=== PATIENT | male | born 1975 | race Caucasian/White ===

== ENCOUNTER 2016-12-31 13:00 | Emergency (ER) | payer OTHER ==
[2016-12-31 13:07] VITALS: PULSE 76; TEMP 99.9
[2016-12-31] MEDS ORDERED: IBUPROFEN 400 MG TAB PO STA (13:16)
--- NOTE | 2016-12-31 13:26 | ED ---
General Adult HPI - General Chief complaint: Dental/Oral Stated complaint: Dental Pain/Swelling Time Seen by Provider: 12/31/16 13:11 Source: patient, RN notes reviewed Mode of arrival: ambulatory Limitations: no limitations - History of Present Illness Initial comments: This is a 41-year-old male with dental pain on the right side that has been hurting for about one week. Patient states he has bad teeth and wears an upper plate. Patient denies any fever/chills, vomiting or diarrhea. Patient admits to some mild nausea. Patient states the pain is waking him up in the middle of the night. Patient states the pain radiates to the right ear. Patient denies any sore throat. Patient states he has noticed some swelling to the right side of his face as well. Patient does have a dentist but was unable to get into them yet. Patient denies any recent shortness breath, chest pain, abdominal pain, back pain, numbness, tingling, hematuria, headache, or visual changes, or any other complaints. - Related Data Home Medications Medication Instructions Recorded Confirmed buPROPion XL [Wellbutrin Xl] 450 mg PO DAILY 12/31/16 12/31/16 Previous Rx's Medication Instructions Recorded Amoxicillin 500 mg PO Q12HR 7 Days 12/31/16 HYDROcodone/APAP 5-325MG [Victor 1 tab PO Q6HR #12 tab 12/31/16 5-325] amLODIPine [Norvasc] 5 mg PO HS 12 Days 12/31/16 Allergies Allergy/AdvReac Type Severity Reaction Status Date / Time No Known Allergies Allergy Verified 12/31/16 13:07 Review of Systems ROS Statement: Those systems with pertinent positive or pertinent negative responses have been documented in the HPI. ROS Other: All systems not noted in ROS Statement are negative. Past Medical History Additional Past Medical History / Comment(s): kidney stone-- 9 years ago History of Any Multi-Drug Resistant Organisms: None Reported Past Surgical History: Cholecystectomy, Orthopedic Surgery Additional Past Surgical History / Comment(s): hemmorrhoidectomy/ elbow Past Psychological History: Depression Smoking Status: Former smoker Past Alcohol Use History: Rare Past Drug Use History: None Reported General Exam - General Exam Comments Initial Comments: General: The patient is awake and alert, in no distress, and does not appear acutely ill. Eye: Pupils are equal, round and reactive to light, extra-ocular movements are intact. No nystagmus. There is normal conjunctiva bilaterally. No signs of icterus. Ears: TMs pink and pearly with intact cone of light bilaterally. Normal external ear canals Nose: Nasal turbinates pink and moist Mouth and throat: There is a fractured tooth #31 with no surrounding erythema or purulent drainage. No sign of abscess. Patient presented upper plate. There is some mild right-sided facial swelling. There are moist mucous membranes and no oral lesions. Neck: The neck is supple, there is no tenderness or JVD. Cardiovascular: There is a regular rate and rhythm. No murmur, rub or gallop is appreciated. Respiratory: Lungs are clear to auscultation, respirations are non-labored, breath sounds are equal. No wheezes, stridor, rales, or rhonchi. Musculoskeletal: Normal ROM, no tenderness. Strength 5/5. Sensation intact. Radial pulses equal bilaterally 2+. Neurological: A&O x 3. CN II-XII intact, There are no obvious motor or sensory deficits. Coordination appears grossly intact. Speech is normal. Skin: Skin is warm and dry and no rashes or lesions are noted. Psychiatric: Cooperative, appropriate mood & affect, normal judgment. Limitations: no limitations Course Vital Signs 12/31/16 12/31/16 13:04 13:20 Temperature 99.9 F H Pulse Rate 76 76 Respiratory 20 18 Rate Blood Pressure 147/103 164/100 O2 Sat by Pulse 98 96 Oximetry Medical Decision Making - Medical Decision Making This is a 41-year-old male who presents with right-sided dental pain 1 week. On physical exam There is a fractured tooth #31 with no surrounding erythema or purulent drainage. No sign of abscess. Patient with an upper plate. There is some mild right-sided facial swelling. There are moist mucous membranes and no oral lesions. Patient has a mild fever at the EC today. Patient was given Motrin for this. Patient's elevated blood pressure is noted and patient states he has a history elevated blood pressure and is currently seeking a primary care physician to manage this. I discussed that this could be partly due to pain but that I will give the patient a prescription for Norvasc to take at night. Patient is asymptomatic today. Discussed close follow-up with the primary care physician for blood pressure. Discussed side effects. I discussed the patient was put on a course of amoxicillin and given a prescription for Victor. Discussed sedation effects. Discussed that patient needs to follow-up with the dentist. Discussed return parameters. [facility] dental plan: [address] [place] [address], . [employer]: Have to pay $50 for x-rays and the rest is covered. . Discussed that patient should follow up with PCP in one to 2 days or return to the [facility] for any worsening symptoms or for any further concerns. Patient and were receptive to this plan and patient will be discharged home. Disposition Clinical Impression: Pain, dental, High blood pressure Disposition: HOME SELF-CARE Condition: Good Instructions: Toothache (ED) Additional Instructions: Please use antibiotics as prescribed. Please use pain medication as prescribed. Please be aware that Victor can make you drowsy please avoid alcohol and driving while using this medication. May use [id number] Tylenol or Motrin for pain. Use warm compresses to the area for pain. Please follow-up with dentist as soon as possible. [facility] dental plan: [address] [place] [address], . [employer]: Have to pay $50 for x-rays and the rest is covered. [phone]. Please use Norvasc as prescribed. Please follow up with PCP tomorrow or return to the EC for any worsening symptoms or for any further concerns. Prescriptions: Amoxicillin 500 mg PO Q12HR 7 Days HYDROcodone/APAP 5-325MG [Victor 5-325] 1 tab PO Q6HR #12 tab amLODIPine [Norvasc] 5 mg PO HS 12 Days Referrals: Jeff Booker III, MD [STAFF PHYSICIAN] - 1-2 days Haresh Bailey MD [STAFF PHYSICIAN] - 1-2 days None,Stated [Primary Care Provider] - 1-2 days Britta Davison MD [STAFF PHYSICIAN] - 1-2 days Time of Disposition: 13:24
[2016-12-31 13:33] VITALS: BP 164/100; RESP 18
== END 2016-12-31 13:40 | disposition home or self-care (01) ==
LOC: EC 13:00
DX: S02.5XXA Fracture of tooth (traumatic), initial encounter for closed fracture (principal); I10 Essential (primary) hypertension; Z79.899 Other long term (current) drug therapy; F32.9 Major depressive disorder, single episode, unspecified; Z87.891 Personal history of nicotine dependence
CPT/HCPCS: 99282

== ENCOUNTER → 2017-03-07 | Outpatient (CLI) | payer OTHER ==
--- NOTE | 2017-03-07 08:26 | US ---
EXAMINATION TYPE: US abdomen comp/pelvis limited DATE OF EXAM: 03/07/2017 7:23 AM COMPARISON: NONE CLINICAL HISTORY: R74.8 Abnormal levels of other serum enzymes,I10. EXAM MEASUREMENTS: Liver Length: 14.9 cm Gallbladder Wall: Surgically absent cm CBD: 0.5 cm Spleen: 14.9 cm Right Kidney: 11.2 x 5.3 x 5.8 cm Left Kidney: 12.6 x 6.5 x 7.0 cm Pancreas: Obscured by bowel gas Liver: difficult to penetrate Gallbladder: Surgically absent CBD: wnl Spleen: measures 14.9 cm, mildly enlarged Right Kidney: No hydronephrosis or masses seen Left Kidney: No hydronephrosis or masses seen Upper IVC: wnl Abd Aorta: wnl Bladder: wnl *prominent prostate noted for 41 yr old. IMPRESSION: 1. Diffuse hepatocellular disease versus hepatic steatosis. Correlate with liver function testing. 2. Mild splenomegaly. 3 mild prominence of the prostate gland suggested.
== END | disposition home or self-care (01) ==
LOC: RADUSWWP 06:55
PROVIDERS: ATTEND Family Medicine
DX: R16.1 Splenomegaly, not elsewhere classified (principal); I10 Essential (primary) hypertension; R74.8 Abnormal levels of other serum enzymes
CPT/HCPCS: 76700; 76857

== ENCOUNTER 2017-05-25 16:26 | Emergency (ER) | payer OTHER ==
[2017-05-25] MEDS ORDERED: KETOROLAC 30 MG/ML 1 ML VIAL IVP STA (17:01)
[2017-05-25] MEDS ORDERED: ONDANSETRON 4 MG/2 ML VIAL IVP STA (17:01)
[2017-05-25] MEDS ORDERED: HYDROmorphone 1 MG/ML 1 ML SYRINGE IVP STA (17:01)
[2017-05-25] MEDS ORDERED: SODIUM CHLORIDE 0.9% 1,000 ML IV STA (17:01)
--- NOTE | 2017-05-25 17:08 | ED ---
General Adult HPI - General Chief complaint: Abdominal Pain Stated complaint: POSS KIDNEY STONE Time Seen by Provider: 05/25/17 16:58 Source: patient Mode of arrival: ambulatory Limitations: no limitations - History of Present Illness Initial comments: Patient's a 41-year-old male with significant past mental history for kidney stones, who presents emergency room today with a chief complaint of right-sided flank pain that started proxy 6 AM this morning. Patient does admit to sharp and pressure type pain locally to the right flank area. Admits to some pressure with urination earlier today. Admits to nausea vomiting. Denies any other complaints or associated symptoms at this time. Patient denies any recent fever, chills, shortness of breath, chest pain, back pain, abdominal pain, nausea or vomiting, numbness or tingling, dysuria or hematuria, constipation or diarrhea, headaches or visual changes, or any other complaints. - Related Data Home Medications Medication Instructions Recorded Confirmed Multivitamins, Thera [Multivitamin 1 tab PO DAILY 05/25/17 05/25/17 (formulary)] Ondansetron Odt [Zofran Odt] 4 mg PO Q12HR PRN 05/25/17 05/25/17 amLODIPine [Norvasc] 10 mg PO DAILY 05/25/17 05/25/17 buPROPion XL [Wellbutrin Xl] 450 mg PO DAILY 05/25/17 05/25/17 Previous Rx's Medication Instructions Recorded Hydrocodone/Acetaminophen [Howell 1 each PO Q6HR PRN #20 tab 05/25/17 5-325] Ibuprofen [Motrin] 800 mg PO Q8HR #30 tab 05/25/17 Ondansetron Odt [Zofran ODT] 4 mg PO Q8HR PRN #20 tab 05/25/17 Tamsulosin [Flomax] 0.4 mg PO DAILY #10 cap 05/25/17 Allergies Allergy/AdvReac Type Severity Reaction Status Date / Time No Known Allergies Allergy Verified 05/25/17 17:04 Review of Systems ROS Statement: Those systems with pertinent positive or pertinent negative responses have been documented in the HPI. ROS Other: All systems not noted in ROS Statement are negative. Past Medical History Additional Past Medical History / Comment(s): kidney stone-- 9 years ago History of Any Multi-Drug Resistant Organisms: None Reported Past Surgical History: Cholecystectomy, Orthopedic Surgery Additional Past Surgical History / Comment(s): hemmorrhoidectomy/ elbow Past Psychological History: Depression Smoking Status: Former smoker Past Alcohol Use History: Rare Past Drug Use History: None Reported General Exam - General Exam Comments Initial Comments: General: The patient is awake and alert, in no distress, and does not appear acutely ill. Eye: Pupils are equal, round and reactive to light, extra-ocular movements are intact. No nystagmus. There is normal conjunctiva bilaterally. No signs of icterus. Ears, nose, mouth and throat: There are moist mucous membranes and no oral lesions. Neck: The neck is supple, there is no tenderness or JVD. Cardiovascular: There is a regular rate and rhythm. No murmur, rub or gallop is appreciated. Respiratory: Lungs are clear to auscultation, respirations are non-labored, breath sounds are equal. No wheezes, stridor, rales, or rhonchi. Gastrointestinal: Soft, non-distended, non-tender abdomen without masses or organomegaly noted. There is no rebound or guarding present. No CVA tenderness. Bowel sounds are unremarkable. Musculoskeletal: Normal ROM, no tenderness. Strength 5/5. Sensation intact. Pulses equal bilaterally 2+. Neurological: A&O x 3. CN II-XII intact, There are no obvious motor or sensory deficits. Coordination appears grossly intact. Speech is normal. Skin: Skin is warm and dry and no rashes or lesions are noted. Psychiatric: Cooperative, appropriate mood & affect, normal judgment. Limitations: no limitations Course Vital Signs 05/25/17 05/25/17 05/25/17 16:31 17:14 18:16 Temperature 98.2 F 98.4 F 98.2 F Pulse Rate 92 73 72 Respiratory 20 18 18 Rate Blood Pressure 162/88 139/84 146/79 O2 Sat by Pulse 99 96 96 Oximetry Medical Decision Making - Medical Decision Making Patient's labs reviewed. Urinalysis reviewed no sign of infection. 71 red cells. Patient does admit to a history kidney stones states his symptoms are consistent symptoms that he's had in the past. Patient feeling much better after pain medication here in the emergency room. Patient will be discharged home on Flomax, pain medication, nausea medication. Advised follow-up with his urologist over the next 2 days or return here to the emergency room symptoms increase worsen or for any other concerns. Patient family state understanding and agreement. - Lab Data Result diagrams: 05/25/17 17:03 05/25/17 17:03 Lab Results 05/25/17 05/25/17 05/25/17 Range/Units 17:03 17:03 18:10 WBC 7.9 (3.8-10.6) k/uL RBC 4.82 (4.30-5.90) m/uL Hgb 15.9 (13.0-17.5) gm/dL Hct 42.4 (39.0-53.0) % MCV 87.9 (80.0-100.0) fL MCH 32.9 (25.0-35.0) pg MCHC 37.4 H (31.0-37.0) g/dL RDW 12.8 (11.5-15.5) % Plt Count 174 (150-450) k/uL Neutrophils % 72 % Lymphocytes % 20 % Monocytes % 4 % Eosinophils % 2 % Basophils % 1 % Neutrophils # 5.7 (1.3-7.7) k/uL Lymphocytes # 1.6 (1.0-4.8) k/uL Monocytes # 0.3 (0-1.0) k/uL Eosinophils # 0.1 (0-0.7) k/uL Basophils # 0.0 (0-0.2) k/uL Sodium 143 (137-145) mmol/L Potassium 4.2 (3.5-5.1) mmol/L Chloride 106 (98-107) mmol/L Carbon Dioxide 22 (22-30) mmol/L Anion Gap 15 mmol/L BUN 11 (9-20) mg/dL Creatinine 1.20 (0.66-1.25) mg/dL Est GFR (MDRD) Af Amer >60 (>60 ml/min/1.73 sqM) Est GFR (MDRD) Non-Af >60 (>60 ml/min/1.73 sqM) Glucose 93 (74-99) mg/dL Calcium 10.1 (8.4-10.2) mg/dL Total Bilirubin 0.8 (0.2-1.3) mg/dL AST 58 (17-59) U/L ALT 117 H (21-72) U/L Alkaline Phosphatase 97 (38-126) U/L Total Protein 8.1 (6.3-8.2) g/dL Albumin 5.1 H (3.5-5.0) g/dL Amylase 61 (30-110) U/L Lipase 132 (23-300) U/L Urine Color Yellow Urine Appearance Clear (Clear) Urine pH 7.5 (5.0-8.0) Ur Specific [place] 1.009 (1.001-1.035) Urine Protein Negative (Negative) Urine Glucose (UA) Negative (Negative) Urine Ketones 1+ H (Negative) Urine Blood Moderate H (Negative) Urine Nitrite Negative (Negative) Urine Bilirubin Negative (Negative) Urine Urobilinogen <2.0 (<2.0) mg/dL Ur Leukocyte Esterase Negative (Negative) Urine RBC 71 H (0-5) /hpf Urine WBC 1 (0-5) /hpf Urine Mucus Rare H (None) /hpf Disposition Clinical Impression: Kidney stone Disposition: HOME SELF-CARE Condition: Good Instructions: Kidney Stones (ED) Additional Instructions: Please use medication as discussed. Please follow-up with urologist/family doctor in the next 2 days of symptoms have not improved. Please return to emergency room if the symptoms increase or worsen or for any other concerns. Prescriptions: Hydrocodone/Acetaminophen [Howell 5-325] 1 each PO Q6HR PRN #20 tab PRN Reason: Pain Ibuprofen [Motrin] 800 mg PO Q8HR #30 tab Ondansetron Odt [Zofran ODT] 4 mg PO Q8HR PRN #20 tab PRN Reason: Nausea Tamsulosin [Flomax] 0.4 mg PO DAILY #10 cap Referrals: Eugenie Delgadillo MD [Primary Care Provider] - 1-2 days Time of Disposition: 18:41
[2017-05-25 17:35] LABS: Basophils % (A) 1 %; CH 31.8; CHCM 36.3; Eosinophils # (A) 0.1 k/uL (0-0.7); Eosinophils % (A) 2 %; HCT 42.4 % (39.0-53.0); HDW 2.88; HGB 15.9 gm/dL (13.0-17.5); Luc # (Auto) 0.13; Luc % (Auto) 2; Lymphocytes # (A) 1.6 k/uL (1.0-4.8); Lymphocytes % (A) 20 %; MCH 32.9 pg (25.0-35.0); MCHC 37.4 g/dL (31.0-37.0); MCV 87.9 fL (80.0-100.0); Mean Platelet Volume 7.8; Monocytes # (A) 0.3 k/uL (0-1.0); Monocytes % (A) 4 %; Neutrophils # (A) 5.7 k/uL (1.3-7.7); Neutrophils % (A) 72 %; RBC 4.82 m/uL (4.30-5.90); RDW 12.8 % (11.5-15.5); WBC 7.9 k/uL (3.8-10.6)
--- NOTE | 2017-05-25 17:41 | XR ---
EXAMINATION TYPE: XR KUB DATE OF EXAM: 05/25/2017 COMPARISON: 12/09/2014 HISTORY: Pain TECHNIQUE: 2 views FINDINGS: There are clips from cholecystectomy. Bowel gas pattern is normal. There is no sign of inte stinal obstruction or pneumoperitoneum. Fecal pattern is normal. Lung bases are clear. I see no calci fications over the kidneys. IMPRESSION: Nonacute abdomen. No change.
[2017-05-25 17:42] LABS: ALT 117 U/L (21-72); AST 58 U/L (17-59); Alkaline Phosphatase 97 U/L (38-126); Amylase 61 U/L (30-110); Anion Gap 15 mmol/L; Blood Urea Nitrogen 11 mg/dL (9-20); Calcium 10.1 mg/dL (8.4-10.2); Carbon Dioxide 22 mmol/L (22-30); Chloride 106 mmol/L (98-107); Glucose 93 mg/dL (74-99); Non-African American GFR(MDRD) >60 (>60 ml/min/1.73 sqM); Potassium 4.2 mmol/L (3.5-5.1); Sodium 143 mmol/L (137-145); Total Bilirubin 0.8 mg/dL (0.2-1.3); Total Protein 8.1 g/dL (6.3-8.2)
[2017-05-25 18:16] VITALS: TEMP 98.2
[2017-05-25 18:24] LABS: Appearance,Urine Clear (Clear); Bilirubin,Urine Negative (Negative); Glucose,Urine (UA) Negative (Negative); Ketones,Urine 1+ (Negative); Leukocyte Esterase,Urine Negative (Negative); Mucus,Urine Rare /hpf; Nitrite,Urine Negative (Negative); PH, Urine 7.5 (5.0-8.0); Particle Count 1440; Protein,Urine Negative (Negative); RBC,Urine 71 /hpf (0-5); Specific Gravity,Urine 1.009 (1.001-1.035); UA Billing (MACRO vs. MICRO) MICRO; Urobilinogen,Urine <2.0 mg/dL (<2.0); WBC,Urine 1 /hpf (0-5)
[2017-05-25 18:42] VITALS: BP 137/74; PULSE 76; RESP 16
== END 2017-05-25 18:53 | disposition home or self-care (01) ==
LOC: EC 16:26
DX: N20.0 Calculus of kidney (principal); R11.2 Nausea with vomiting, unspecified; F32.9 Major depressive disorder, single episode, unspecified; Z90.49 Acquired absence of other specified parts of digestive tract; Z79.899 Other long term (current) drug therapy; Z87.891 Personal history of nicotine dependence
CPT/HCPCS: 99284; 96374; 96375 ×2; 96361 ×2; 36415; 80053; 82150; 83690; 85025; 81001; 74000; J2405; J1885; J1170

== ENCOUNTER 2017-05-27 22:45 | Emergency (ER) | payer OTHER ==
[2017-05-28] MEDS ORDERED: HYDROmorphone 1 MG/ML 1 ML SYRINGE ONE ×2 (00:30)
[2017-05-28] MEDS ORDERED: KETOROLAC 30 MG/ML 1 ML VIAL ONE (00:30)
[2017-05-28] MEDS ORDERED: METOCLOPRAMIDE 5 MG/ML 2 ML VIAL ONE (00:30)
[2017-05-28 05:49] LABS: Basophils # (A) 0.1 k/uL (0-0.2); Basophils % (A) 1 %; CH 32.6; CHCM 37.2; Eosinophils # (A) 0.1 k/uL (0-0.7); Eosinophils % (A) 1 %; HCT 42.9 % (39.0-53.0); HDW 2.77; HGB 15.7 gm/dL (13.0-17.5); Luc % (Auto) 1; Lymphocytes # (A) 1.4 k/uL (1.0-4.8); Lymphocytes % (A) 15 %; MCH 32.3 pg (25.0-35.0); MCHC 36.7 g/dL (31.0-37.0); MCV 87.9 fL (80.0-100.0); Mean Platelet Volume 8.2; Monocytes # (A) 0.4 k/uL (0-1.0); Monocytes % (A) 4 %; Neutrophils # (A) 7.6 k/uL (1.3-7.7); Neutrophils % (A) 78 %; RBC 4.87 m/uL (4.30-5.90); WBC 9.7 k/uL (3.8-10.6); WBC (Perox) 9.51
[2017-05-28 05:55] LABS: ALT 108 U/L (21-72); AST 53 U/L (17-59); Alkaline Phosphatase 91 U/L (38-126); Anion Gap 15 mmol/L; Blood Urea Nitrogen 13 mg/dL (9-20); Carbon Dioxide 21 mmol/L (22-30); Chloride 105 mmol/L (98-107); Glucose 95 mg/dL (74-99); Non-African American GFR(MDRD) 52 (>60 ml/min/1.73 sqM); Sodium 141 mmol/L (137-145); Total Bilirubin 1.1 mg/dL (0.2-1.3); Total Protein 7.7 g/dL (6.3-8.2)
[2017-05-28] MEDS ORDERED: SODIUM CHLORIDE 0.9% 1,000 ML BAG ONE (07:05)
== END 2017-05-28 02:00 | disposition home or self-care (01) ==
LOC: EC 22:45
DX: N20.1 Calculus of ureter (principal); I10 Essential (primary) hypertension; Z90.49 Acquired absence of other specified parts of digestive tract; Z87.891 Personal history of nicotine dependence; Z79.899 Other long term (current) drug therapy
CPT/HCPCS: 99284; 96374; 96375 ×2; 96376; 96361 ×2; 36415; 80053; 85025; J2765; J1885; J1170

== ENCOUNTER → 2017-10-06 | Outpatient (CLI) | payer OTHER ==
[2017-10-06 10:55] LABS: Bilirubin, Delta 0.2 mg/dL (0.0-0.2); Total Bilirubin 0.6 mg/dL (0.2-1.3); Total Protein 7.5 g/dL (6.3-8.2)
== END | disposition home or self-care (01) ==
LOC: LABWHC1 10:18
DX: R74.8 Abnormal levels of other serum enzymes (principal)
CPT/HCPCS: 36415; 80076

== ENCOUNTER → 2018-04-05 | Outpatient (CLI) | payer OTHER ==
[2018-04-05 11:08] LABS: Bilirubin, Delta 0.4 mg/dL (0.0-0.2); Bilirubin,Unconjugated 0.8 mg/dL (0.0-1.1); Total Bilirubin 1.2 mg/dL (0.2-1.3); Total Protein 7.8 g/dL (6.3-8.2)
== END ==
LOC: LABWHC1 10:28
DX: K76.0 Fatty (change of) liver, not elsewhere classified (principal)
CPT/HCPCS: 36415; 80076

== ENCOUNTER → 2018-08-06 | Outpatient (CLI) | payer OTHER ==
[2018-08-06 13:53] LABS: Albumin 4.5 g/dL (3.5-5.0); Bilirubin, Delta 0.3 mg/dL (0.0-0.2); Bilirubin,Unconjugated 0.5 mg/dL (0.0-1.1); Total Bilirubin 0.8 mg/dL (0.2-1.3); Total Protein 7.4 g/dL (6.3-8.2)
== END | disposition home or self-care (01) ==
LOC: LABWHC1 13:01
DX: R74.8 Abnormal levels of other serum enzymes (principal)
CPT/HCPCS: 36415; 80076

== ENCOUNTER → 2019-09-09 | Outpatient (CLI) | payer OTHER ==
[2019-09-09 08:43] LABS: HCT 43.3 % (39.0-53.0); HGB 15.6 gm/dL (13.0-17.5); MCH 32.5 pg (25.0-35.0); MCV 90.4 fL (80.0-100.0); Mean Platelet Volume 7.2; Platelet Count 174 k/uL (150-450); RBC 4.79 m/uL (4.30-5.90); RDW 12.5 % (11.5-15.5)
[2019-09-09 08:47] LABS: Prothrombin Time 10.8 sec (9.0-12.0)
--- NOTE | 2019-09-09 09:01 | US ---
EXAMINATION TYPE: US liver DATE OF EXAM: 09/09/2019 COMPARISON: 03/07/2017 CLINICAL HISTORY: R74.8 Abnormal levels of other serum enzymes. Elevated livers. Exam limitations due to bowel gas. EXAM MEASUREMENTS: Liver Length: 18.4 cm Gallbladder Wall: Surgically absent cm CBD: .4 cm Right Kidney: 11.2 x 6.1 x 3.7 cm Pancreas: Obscured by bowel gas Liver: Coarsened heterogenous echotexture of the hepatic parenchyma, which most commonly corresponds to hepatic steatosis and limits evaluation for underlying hepatic masses. This was seen on the prior examination of 03/07/2017 Gallbladder: Surgically absent Evidence for sonographic Perez's sign: No CBD: wnl Right Kidney: wnl IMPRESSION: Sonographic findings most commonly related to hepatic steatosis. Correlate with liver function test r esults in this patient with hepatic steatosis on the prior exam of 03/07/2017. This appears moderate i n degree.
[2019-09-09 09:05] LABS: Albumin 4.8 g/dL (3.5-5.0); Bilirubin, Delta 0.1 mg/dL (0.0-0.2); Bilirubin,Unconjugated 0.6 mg/dL (0.0-1.1); Total Bilirubin 0.7 mg/dL (0.2-1.3); Total Protein 7.8 g/dL (6.3-8.2)
[2019-09-09 19:05] LABS: Protein, Total 6.8 g/dL (6.2-8.2)
[2019-09-09 20:12] LABS: Iron Saturation 23.69 (15.00-50.00)
[2019-09-09 20:21] LABS: Ferritin 90.3 ng/mL (22.0-322.0)
[2019-09-10 11:29] LABS: Ceruloplasmin 17.8 mg/dL (20.0-60.0)
[2019-09-10 12:27] LABS: Gamma Globulin 0.85 g/dL (0.70-1.50)
== END | disposition home or self-care (01) ==
LOC: RADUSWWP 07:32
PROVIDERS: ATTEND Internal Medicine Gastroenterology
DX: R74.8 Abnormal levels of other serum enzymes (principal)
CPT/HCPCS: 36415; 76705; 80076; 82103; 82390; 82728; 83516; 83540; 83550; 84165; 85027; 85610; 86038

== ENCOUNTER → 2020-03-23 | Outpatient (CLI) | payer OTHER ==
[2020-03-23 16:02] LABS: Albumin 4.7 g/dL (3.80-4.90); Albumin/Globulin Ratio 2.24 (1.60-3.17); Bilirubin, Conjugated 0.3 mg/dL (0.20-0.40); Bilirubin,Unconjugated 0.2 mg/dL; Globulin 2.1 g/dL (1.6-3.3); Total Bilirubin 0.5 mg/dL (0.3-1.2); Total Protein 6.8 g/dL (6.2-8.2)
== END | disposition home or self-care (01) ==
LOC: LABWHC1 08:12
PROVIDERS: ATTEND Physician Assistant
DX: R74.8 Abnormal levels of other serum enzymes (principal)
CPT/HCPCS: 36415; 80076

== ENCOUNTER 2020-05-01 10:13 | Emergency (ER) | payer OTHER ==
[2020-05-01 10:24] VITALS: TEMP 98.6
[2020-05-01] MEDS ORDERED: HYDROmorphone 0.5 MG/0.5 ML SYRINGE IM STA (10:32)
[2020-05-01] MEDS ORDERED: DIAZEPAM 2 MG TAB PO STA (10:32)
[2020-05-01] MEDS ORDERED: LIDOCAINE 5% PATCH TOPICAL STA (10:33)
--- NOTE | 2020-05-01 10:41 | ED ---
Back Pain [facility] - General Chief Complaint: Back Pain/Injury Stated Complaint: Siatica pain Time Seen by Provider: 05/01/20 10:25 Source: patient Limitations: no limitations - History of Present Illness Initial Comments: 44-year-old male no smoking past medical history presenting today for chief complaint of right low back pain radiating down leg. Patient states he has had right-sided low back pain that occasionally radiate Kristen down the right leg on and off for weeks. He states that there is no specific inciting injury or event at that time. 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 He states he can feel the right leg however feels slightly different in comparison to the sensation of the left leg. Patient denies any loss of bowel bladder control he denies any urinary retention, fevers, IVDU, history of cancer, or recent falls/trauma. Denies experiencing this sensation prior to a few weeks ago. Patient denies severe midline pain. - Related Data Home Medications Medication Instructions Recorded Confirmed Multivitamins, Thera [Multivitamin 1 tab PO DAILY 05/25/17 05/25/17 (formulary)] Ondansetron Odt [Zofran Odt] 4 mg PO Q12HR PRN 05/25/17 05/25/17 amLODIPine [Norvasc] 10 mg PO DAILY 05/25/17 05/25/17 buPROPion XL [Wellbutrin Xl] 450 mg PO DAILY 05/25/17 05/25/17 Previous Rx's Medication Instructions Recorded Hydrocodone/Acetaminophen [Napanoch 1 each PO Q6HR PRN #20 tab 05/25/17 5-325] Ibuprofen [Motrin] 800 mg PO Q8HR #30 tab 05/25/17 Ondansetron Odt [Zofran ODT] 4 mg PO Q8HR PRN #20 tab 05/25/17 Tamsulosin [Flomax] 0.4 mg PO DAILY #10 cap 05/25/17 Cyclobenzaprine [Flexeril] 10 mg PO TID PRN 7 Days #21 tab 05/01/20 HYDROcodone/APAP 7.5-325MG [Napanoch 1 tab PO Q4H PRN 3 Days #18 tab 05/01/20 7.5-325] Allergies Allergy/AdvReac Type Severity Reaction Status Date / Time No Known Allergies Allergy Verified 05/01/20 10:24 Review of Systems ROS Statement: Those systems with pertinent positive or pertinent negative responses have been documented in the HPI. ROS Other: All systems not noted in ROS Statement are negative. Past Medical History Additional Past Medical History / Comment(s): kidney stone-- 9 years ago History of Any Multi-Drug Resistant Organisms: None Reported Past Surgical History: Cholecystectomy, Orthopedic Surgery Additional Past Surgical History / Comment(s): hemmorrhoidectomy/ elbow Past Psychological History: Depression Smoking Status: Former smoker Past Alcohol Use History: Rare Past Drug Use History: None Reported General Exam - General Exam Comments Initial Comments: General: The patient is awake and alert, appears uncomfortable. Eye: Pupils are equal, round and reactive to light, extra-ocular movements are intact. No nystagmus. There is normal conjunctiva bilaterally. No signs of icterus. Cardiovascular: There is a regular rate and rhythm. No murmur, rub or gallop is appreciated. Respiratory: Lungs are clear to auscultation, respirations are non-labored, breath sounds are equal. No wheezes, stridor, rales, or rhonchi. Musculoskeletal: Normal inspection of the cervical thoracic and lumbar spine no midline tenderness of the cervical thoracic or lumbar spine some very mild right-sided paravertebral tenderness Normal ROM, of the LE b/l with + right sided SLR. Strength 5/5 of the hips, knees ankle and feet b/l is equal in comparison. No myoclonus, fasiculations or atrophy noted. Sensation intact of the LE b/l including the saddle region, pt states the sensation of the right leg feels slightly decreased/pin and needle per patient to palpation. Ambulatory. DP pulses equal bilaterally 2+. Neurological: A&O x 3. CN II-XII intact grossly, There are no obvious motor or sensory deficits. Coordination appears grossly intact. Speech is normal. Skin: Skin is warm and dry and no rashes or lesions are noted. Psychiatric: Cooperative, appropriate mood & affect, normal judgment. Limitations: no limitations Course Vital Signs 05/01/20 05/01/20 10:19 11:51 Temperature 98.6 F Pulse Rate 79 86 Respiratory 18 16 Rate Blood Pressure 159/103 145/87 O2 Sat by Pulse 98 99 Oximetry Medical Decision Making - Medical Decision Making 44yo male presenting today for cc of right leg pain, right low back pain. No midline pain. Suspected disc disease.CT revealed a hypertrophic spur impinging the right foramina at L5-S1 thecal sac impingement. Consulted orthopedic spine Flora Ely discussed in detail physical exam/history and CT findings. He is agreeable to discharge with symptomatic treatment and outpatient f/u. Dr. Hayes agreeable to care plan and discdharege. Patient discharged appearing well. Slight improvement of symptoms in the ER. Disposition Clinical Impression: Radiculopathy, Bulging disc Disposition: HOME SELF-CARE Condition: Good Instructions (If sedation given, give patient instructions): Lumbar Radiculopathy (ED) Additional Instructions: Please use medication as discussed. Please follow-up with family doctor in the next 2 days, please follow-up with Dr. Ely in next week. PLease return for symptoms discussed, fevers, loss of bowel or bladder control, urinary retention (unable to start stream/urinate), increasing loss of sensation, any weakness of the right leg. Please return to emergency room if the symptoms increase or worsen or for any other concerns. Prescriptions: Cyclobenzaprine [Flexeril] 10 mg PO TID PRN 7 Days #21 tab PRN Reason: Muscle Spasm HYDROcodone/APAP 7.5-325MG [Napanoch 7.5-325] 1 tab PO Q4H PRN 3 Days #18 tab PRN Reason: Severe Pain Is patient prescribed a controlled substance at d/c from ED?: Yes When asked, does pt state using other controlled substances?: No If prescribed controlled substance>3 days was MAPS reviewed?: Prescribed <3 Days If opioid is for acute pain is fill amount 7 days or less?: Yes If Rx opioid, was Start Talking consent form obtained?: Yes Referrals: Eugenie Delgadillo MD [Primary Care Provider] - 1-2 days Theodore Ely DO [Doctor of Osteopathic Medicine] - 1-2 days Time of Disposition: 11:42
--- NOTE | 2020-05-01 11:22 | CT ---
EXAMINATION TYPE: CT lumbar spine wo con DATE OF EXAM: 05/01/2020 11:06 AM COMPARISON: None. HISTORY: Decreased sensation right leg, low back pain CT DLP: 1312.6 mGycm Automated exposure control for dose reduction was used. Unenhanced CT of the lumbar spine was performed. Bone and soft tissue window settings are submitted as well as coronal and sagittal reconstructions. FINDINGS: Visualized portions of the lungs are clear. No pleural fluid is seen. There is a 6.2 mm nonobstructing calculus in the anterior upper pole calyx of the right kidney. There is moderate atheromatous calcification of the visualized arterial tree. Paraspinal soft tissues are otherwise unremarkable. Vertebral body height and alignment are maintained. There is no spondylolysis or spondylolisthesis. At T12-L1, intervertebral foramina are widely maintained. There is no significant compressive discopa thy. The facets are unremarkable. L1-L2: The intervertebral foramina are well maintained. There is no significant compressive discopath y. The facets are unremarkable. L2-L3: There is no significant compressive discopathy. Intervertebral foramina are widely maintained. The facets are unremarkable. L3-L4: The intervertebral foramina are well maintained. There is a mild, diffuse disc displacement. T here is mild hypertrophic changes in the facets. L4-L5: The intervertebral foramina are well maintained. There is a diffuse disc displacement. This is effacing the thecal sac. There is mild hypertrophic changes in the facets. There is mild trefoiling of the thecal sac. L5-S1: The right intervertebral foramina is fairly markedly narrowed due to hypertrophic spur present posterior laterally on the right. This is also deforming the thecal sac. The left intervertebral for anabella appears maintained. There is deformity of the thecal sac due to the hypertrophic spur. The face ts are unremarkable. IMPRESSION: 1. LARGE HYPERTROPHIC SPUR POSTERIOR LATERALLY ON THE RIGHT IMPINGING UPON THE INTERVERTEBRAL FORAMIN A ON THE RIGHT AND DEFORMING THE THECAL SAC AT THE L5-S1 LEVEL. 2. MILD DEGENERATIVE CHANGE ELSEWHERE THROUGHOUT THE LUMBAR SPINE. 3. RIGHT-SIDED NEPHROLITHIASIS.
[2020-05-01] MEDS ORDERED: DEXAMETHASONE 4 MG TAB PO STA (11:39)
[2020-05-01 11:52] VITALS: BP 145/87; PULSE 86; RESP 16
== END 2020-05-01 11:49 | disposition home or self-care (01) ==
LOC: EC 10:13
DX: M51.16 Intervertebral disc disorders with radiculopathy, lumbar region (principal); F32.9 Major depressive disorder, single episode, unspecified; Z79.899 Other long term (current) drug therapy; Z87.891 Personal history of nicotine dependence; Z87.442 Personal history of urinary calculi
CPT/HCPCS: 72131; 96372; 99284; J8540; J1170

== ENCOUNTER → 2020-11-15 | Outpatient (CLI) | payer OTHER ==
--- NOTE | 2020-11-16 05:19 | MR ---
EXAMINATION TYPE: MR lumbar spine wo con DATE OF EXAM: 11/15/2020 COMPARISON: None HISTORY: LBP, RLE radiculopathy after picking up heavy object 6 mos ago Multiplanar multiecho imaging of the lumbar spine was performed with no contrast. Lumbar vertebra have normal alignment. There is decreased signal and mild narrowing of the disc space s at L4-5 L5-S1. There is mild posterior disc bulging at L4-5. There is moderate size posterior centr al and right-sided L5-S1 disc herniation impinging on the lateral recess. There is no spinal stenosis . There is no compression fracture. There is no lumbar paraspinal mass. Sacroiliac joints are intact. I see no bony destructive process. IMPRESSION: Moderately large posterior right-sided L5-S1 lumbar disc herniation is probably clinically significan t in this patient with right sided pain.
== END | disposition home or self-care (01) ==
LOC: RADMRIMAIN 21:37
PROVIDERS: ATTEND Neurological Surgery
DX: M51.17 Intervertebral disc disorders with radiculopathy, lumbosacral region (principal)
CPT/HCPCS: 72148

== ENCOUNTER 2023-12-10 08:33 | Day surgery (SDC) | payer OTHER ==
--- NOTE | 2023-12-10 07:36 | P.GSHP ---
History of Present Illness H&P Date: 12/10/23 Chief Complaint: Colon cancer screening, left back mass 48-year-old male seen in the office. Patient with complaints of 2 separate palpable masses in the left upper back region. Patient also states he is due for screening colonoscopy. No bowel complaints. Mild pain at the left sided back lesions. Past Medical History Past Medical History: Hyperlipidemia, Hypertension, Liver Disease Additional Past Medical History / Comment(s): kidney stones, non alcholic fatty liver syndrome, History of Any Multi-Drug Resistant Organisms: None Reported Past Surgical History: Cholecystectomy, Orthopedic Surgery Additional Past Surgical History / Comment(s): hemmorrhoidectomy/ elbow, hypospadia sugery as child Past Anesthesia/Blood Transfusion Reactions: No Reported Reaction Smoking Status: Former smoker - Past Family History Father Family Medical History: Cancer Additional Family Medical History / Comment(s): pancreatic Medications and Allergies Home Medications Medication Instructions Recorded Confirmed Type Multivitamins, Thera [Multivitamin 1 tab PO DAILY 05/25/17 05/25/17 History (formulary)] amLODIPine [Norvasc] 10 mg PO DAILY 05/25/17 12/04/23 History buPROPion XL [Wellbutrin Xl] 450 mg PO DAILY 05/25/17 12/04/23 History Atorvastatin [Lipitor] 20 mg PO DAILY 12/04/23 12/04/23 History Allergies Allergy/AdvReac Type Severity Reaction Status Date / Time No Known Allergies Allergy Verified 12/04/23 09:47 Surgical - Exam Physical exam: General: Well-developed, well-nourished HEENT: Normocephalic, sclerae nonicteric Abdomen: Nontender, nondistended Extremities: No edema, left-sided mass 2 small suspected sebaceous cyst, larger palpable subcutaneous mass 4 cm Neuro: Alert and oriented Assessment and Plan (1) Lipoma Narrative/Plan: 48-year-old male with 2 separate VAC lesions. Patient due for screening c olonoscopy. We'll proceed with excision back lesion 2, screening colonoscopy. Risks of bleeding, infection, perforation, recurrence, scarring reviewed. Patient understands and wishes to proceed. Status: Acute Code(s): D17.9 - BENIGN LIPOMATOUS NEOPLASM, UNSPECIFIED SNOMED Code(s): 14106565
[~2023-12-10 08:33] MED LIST: ACETAMINOPHEN TAB 500 MG TAB PO PRN; DEXAMETHASONE SOD PHOSPHATE 4 MG/ML 1 ML VIAL IV ONE; HEPARIN SODIUM,PORCINE 5,000 UNIT/ML 1 ML VIAL SQ PRN; HYDROmorphone 0.5 MG/0.5 ML SYRINGE IVP PRN; LACTATED RINGERS 1,000 ML IV SCH; MIDAZOLAM 2 MG/2 ML VIAL IV PRN; ONDANSETRON 4 MG/2 ML VIAL IVP ONE; Pre Op ABX Message 1 EACH MISC MISCELLANE ONE; SCOPOLAMINE 1 MG/72 HR PATCH TRANSDERM ONE
[2023-12-10] MEDS ORDERED: ONDANSETRON 4 MG/2 ML VIAL IVP ONE (09:15)
[2023-12-10] MEDS ORDERED: DEXAMETHASONE SOD PHOSPHATE 4 MG/ML 1 ML VIAL IVP ONE (09:15)
[2023-12-10 09:34] LABS: HCT 42.1 % (39.0-53.0); HGB 14.7 gm/dL (13.0-17.5); MCH 31.3 pg (25.0-35.0); MCV 89.3 fL (80.0-100.0); Mean Platelet Volume 8.3; Platelet Count 192 k/uL (150-450); RBC 4.71 m/uL (4.30-5.90); RDW 12.5 % (11.5-15.5); WBC 7.1 k/uL (3.8-10.6)
[2023-12-10] MEDS ORDERED: fentaNYL (PF) 50 MCG/ML 2 ML AMP ONE (10:20)
[2023-12-10] MEDS ORDERED: MIDAZOLAM 2 MG/2 ML VIAL ONE (10:20)
[2023-12-10] MEDS ORDERED: LIDOCAINE 1% INJ 10MG/ML (20 ML MDV) ONE (10:20)
[2023-12-10] MEDS ORDERED: ceFAZolin 1,000 MG VIAL ONE (10:20)
[2023-12-10] MEDS ORDERED: PROPOFOL 10 MG/ML 20 ML VIAL IV ONE (10:20)
[2023-12-10] MEDS ORDERED: SODIUM CHLORIDE 0.9% 100 ML BAG ONE (10:20)
[2023-12-10] MEDS ORDERED: BUPIVACAINE (PF) 0.25% 30 ML VIAL SQ ONE ×2 (10:24→11:05)
[2023-12-10] MEDS ORDERED: SODIUM CHLORIDE 0.9% 50 ML with ceFAZolin 1,000 MG IV ONE ×4 (10:25)
[2023-12-10] MEDS ORDERED: HYDROcodone/APAP 5-325MG 1 EACH TAB PO PRN (11:34)
[2023-12-10] MEDS ORDERED: NALOXONE 0.4 MG/ML 1 ML VIAL IV PRN (11:34)
--- NOTE | 2023-12-10 11:38 | P.OP ---
Date of Procedure: 12/10/23 Procedure(s) Performed: PREOPERATIVE DIAGNOSIS: Colon cancer screening, left upper back mass, left shoulder cyst POSTOPERATIVE DIAGNOSIS: Diverticulosis, left upper back lipoma left shoulder cyst PROCEDURE: Excision left upper back mass with intermediate closure, excision left shoulder sebaceous cyst, Colonoscopy ANESTHESIA: Gen. SURGEON: Gerhard Ford M.D. SPECIMENS: Mass and cyst ENDOSCOPIC PROCEDURE: The patient was placed on the operating table in the right decubitus position. The left upper back and shoulder region were prepped and draped sterilely. A horizontal incision was made overlying the palpable mass. A 4.5 x 3 cm lipoma was identified. This was removed using both blunt dissection and cautery. This was sent to pathology. Subcutaneous layers closed using interrupted 3-0 Vicryl suture. Skin closed using running 4-0 Monocryl stitch. Skin glue and sterile dressing applied. Next a 1.2 cm sebaceous cyst left shoulder was excised sharply. This was closed using 3 separate interrupted 4-0 nylon sutures. Sterile dressings applied. Patient was then placed in the left decubitus position. The Olympus colonoscope was inserted into the anus and passed under direct visualization to the base of the cecum. The appendiceal orifice was visualized. From that point the scope was slowly withdrawn inspecting all surfaces carefully. There were no neoplastic inflammatory or polypoid lesions throughout the cecum, ascending, transverse, descending, sigmoid and rectum. There was mild scattered diverticulosis noted. Digital rectal examination was normal. The patient was taken to the recovery room in stable condition per anesthesia guidelines.
[2023-12-10 11:48] VITALS: TEMP 97.4
[2023-12-10 12:12] VITALS: RESP 16
[2023-12-10 12:37] VITALS: BP 133/78; PULSE 77
== END 2023-12-10 13:10 | disposition home or self-care (01) ==
LOC: OR 08:33
PROVIDERS: ATTEND Surgery
DX: Z12.11 Encounter for screening for malignant neoplasm of colon (principal); L72.12 Trichodermal cyst; K57.30 Diverticulosis of large intestine without perforation or abscess without bleeding; L72.3 Sebaceous cyst; E78.5 Hyperlipidemia, unspecified; I10 Essential (primary) hypertension; K76.0 Fatty (change of) liver, not elsewhere classified; Z87.891 Personal history of nicotine dependence; Z90.49 Acquired absence of other specified parts of digestive tract
CPT/HCPCS: 23071; 88304; 85027; 45378; J2250; J1644; J1100; J2405; J0690; J2001; J3010; J2704; J0665; 45380